=== PATIENT | female | born 1985 | race Caucasian/White ===

== ENCOUNTER 2016-07-11 13:48 | Outpatient (CLI) | payer OTHER | END 2016-07-11 13:49 | disposition home or self-care (01) | DX: M23.8X1 Other internal derangements of right knee (principal); M25.561 Pain in right knee ==

== ENCOUNTER 2017-06-17 08:00 | Outpatient (CLI) | payer OTHER ==
[2017-06-17 19:54] LABS: THYROID STIMULATING HORMONE 0.65 uIU/mL (0.34-5.60)
[2017-06-17 19:58] LABS: FERRITIN 24.1 ng/mL (11.0-306.8)
[2017-06-17 20:28] LABS: BASOPHILS % (AUTO) 0.4 %; EOSINOPHILS # (AUTO) 0.1 10^3/uL (0.0-0.7); EOSINOPHILS % (AUTO) 1.1 %; HCT - HEMATOCRIT 39.4 % (37.0-47.0); HGB - HEMOGLOBIN 13.4 g/dL (12.0-16.0); LYMPHOCYTES # (AUTO) 1.8 10^3/uL (1.5-3.5); LYMPHOCYTES % (AUTO) 23.7 %; MEAN CORPUSCULAR HEMOGLOBIN 30.1 pg (27.0-31.0); MEAN CORPUSCULAR HGB CONC 34.1 g/dL (32.0-36.0); MEAN CORPUSCULAR VOLUME 88.3 fL (81.0-99.0); MEAN PLATELET VOLUME 8.5 fL (7.9-10.8); MONOCYTES # (AUTO) 0.6 10^3/uL (0.0-1.0); MONOCYTES % (AUTO) 8.2 %; NEUTROPHILS # (AUTO) 4.9 10^3/uL (1.5-6.6); NEUTROPHILS % (AUTO) 66.6 %; RED BLOOD COUNT 4.46 10^6/uL (4.20-5.40); RED CELL DISTRIBUTION WIDTH 13.1 % (12.0-15.0); UNCORRECTED WHITE BLOOD COUNT 7.4 x10^3/uL; WHITE BLOOD COUNT 7.4 x10^3/uL (4.8-10.8)
== END 2017-06-17 08:01 | disposition home or self-care (01) ==
LOC: LAB.WCP 08:00
PROVIDERS: ATTEND Family Medicine
DX: N92.0 Excessive and frequent menstruation with regular cycle (principal)
CPT/HCPCS: 36415; 82728; 84443; 85025

== ENCOUNTER 2017-08-19 10:00 | Outpatient (CLI) | payer OTHER | END 2017-08-19 10:01 | disposition home or self-care (01) | LOC: LAB.WCP 10:00 | PROVIDERS: ATTEND Family Medicine | DX: N89.8 Other specified noninflammatory disorders of vagina (principal) | CPT/HCPCS: 87480; 87491; 87510; 87591; 87660 ==

== ENCOUNTER 2019-04-06 08:00 | Outpatient (CLI) | payer OTHER | END 2019-04-06 23:59 | disposition home or self-care (01) | LOC: LAB.WCP 08:00 | PROVIDERS: ATTEND Family Medicine | DX: N94.6 Dysmenorrhea, unspecified (principal) | CPT/HCPCS: 36415; 84146 ==

== ENCOUNTER 2019-06-01 11:46 | Day surgery (SDC) | payer OTHER ==
[~2019-06-01 11:46] MED LIST: ONDANSETRON 4 MG/2 ML VIAL ONE; SCOPOLAMINE PATCH TOP ONE
[2019-06-01 12:03] LABS: HCG UR QUAL NEGATIVE
[2019-06-01] MEDS ORDERED: LACTATED RINGERS 1,000 ML IV ONE (12:08)
[2019-06-01 14:31] VITALS: BP 108/83
== END 2019-06-01 11:47 | disposition home or self-care (01) ==
LOC: SDS 11:46
PROVIDERS: ATTEND Surgery
PROC: 0DJD8ZZ Inspection of Lower Intestinal Tract, Via Natural or Artificial Opening Endoscopic (ICD-10-PCS; principal; 2019-06-01 13:15)
DX: K62.5 Hemorrhage of anus and rectum (principal); K64.8 Other hemorrhoids; K59.00 Constipation, unspecified
CPT/HCPCS: 45378; 81025; J3490; J7120

== ENCOUNTER 2019-11-09 08:00 | Outpatient (CLI) | payer OTHER ==
[2019-11-09 14:10] LABS: FREE T3 7.39 pg/mL (2.5-3.9)
== END 2019-11-09 23:59 | disposition home or self-care (01) ==
LOC: LAB.WCP 08:00
PROVIDERS: ATTEND Family Medicine
DX: E03.9 Hypothyroidism, unspecified (principal)
CPT/HCPCS: 36415; 84443; 84481

== ENCOUNTER 2019-11-09 11:52 | Outpatient (CLI) | payer OTHER ==
--- NOTE | 2019-11-10 03:12 | XRAY Report ---
Reason: ROTATOR CUFF TEAR Procedure Date: 11/09/2019 Accession Number: [id number] / [id number] Procedure: WCP - Shoulder 2 View LT CPT Code: Final Report FULL RESULT: EXAM: LEFT SHOULDER RADIOGRAPHY EXAM DATE: 11/09/2019 11:52 AM. CLINICAL HISTORY: ROTATOR CUFF TEAR. COMPARISON: None. TECHNIQUE: 2 views. FINDINGS: Bones: Normal. No fracture or bone lesion. Joints: The glenohumeral and acromioclavicular joints are normal. Soft tissues: The visualized hemithorax is unremarkable. No soft tissue swelling. IMPRESSION: Normal shoulder radiography. [facility]
== END 2019-11-09 23:59 | disposition home or self-care (01) ==
LOC: DI.WCP 11:52
PROVIDERS: ATTEND Family Medicine
DX: M75.102 Unspecified rotator cuff tear or rupture of left shoulder, not specified as traumatic (principal)

== ENCOUNTER 2021-03-30 07:49 | Outpatient (CLI) | payer OTHER ==
--- NOTE | 2021-03-30 09:45 | Ultrasound Report ---
PROCEDURE: Abdomen Complete INDICATIONS: LEFT UPPER QUAD ABD PAIN TECHNIQUE: Real-time scanning was performed of the abdominal and retroperitoneal organs, with image documentatio n. COMPARISON: None. FINDINGS: Liver: Liver is normal in size and demonstrates a mildly echogenic and coarsened appearance. Gallbladder: No gallstones or significant sludge can be seen. The gallbladder wall does not appear th ickened. There is no specific pericholecystic fluid. The sonographic Vera's sign is negative. Biliary ducts: Intrahepatic bile ducts are non-dilated. Extrahepatic bile duct caliber measures 4 m m. Normal is 6-7 mm or less in diameter, or 10 mm or less post-cholecystectomy. Pancreas: Visualized portions of the pancreas are sonographically normal. Spleen: Spleen is normal in size and demonstrates 2 simple appearing cysts that measure up to 1.2 cm . The spleen overall is echogenic. Kidneys: Kidneys are normal in size and echotexture. Right kidney measures 9.5 cm long; left kidney measures 10.8 cm long. No hydronephrosis can be seen. Within the right lateral mid kidney there is a 7 mm hyperechoic focus seen, without shadowing. At the superior pole of the left kidney, there is a 1.5 cm simple cyst seen. Aorta: Visualized aorta is normal in caliber at less than 3 cm. Iliacs: Proximal common iliac arteries are normal in caliber at less than 2.5 cm. IVC: Intrahepatic inferior vena cava is patent. Miscellaneous: No free abdominal fluid. IMPRESSION: A cause of left upper quadrant pain is not identified. The spleen demonstrates normal size. The spleen is mildly echogenic, which is not considered to be fr ankly pathologic. Simple appearing splenic cysts are also seen. Incidental note is made of: Mild fatty liver infiltration Right kidney presumed benign fat-containing lesion Left kidney cortical cyst Reviewed by: Ron Mccray MD on 03/30/2021 8:44 AM CINDY Approved by: Ron Mccray MD on 03/30/2021 8:44 AM CINDY Station ID: [id number]
--- NOTE | 2021-03-30 09:47 | Ultrasound Report ---
PROCEDURE: Head or Neck Soft Tissue INDICATIONS: LYMPHADENOPATHY TECHNIQUE: Real time scanning was performed of the neck region of interest, with image documentation . COMPARISON: None. FINDINGS: Scanning is performed at the area of clinical concern involving the right lateral neck. At this site, there is a normal-appearing lymph node seen that measures within normal limits for size a t 16 x 8 x 3 mm. Normal appearing cortex is seen that measures 2 mm in thickness. There is a normal, well preserved fatty hilum with normal flow within the fatty hilum. IMPRESSION: At the area of clinical concern, there is a normal-appearing lymph node seen. Reviewed by: Ron Mccray MD on 03/30/2021 8:46 AM CINDY Approved by: Ron Mccray MD on 03/30/2021 8:46 AM CINDY Station ID: [id number]
== END 2021-03-30 07:50 | disposition home or self-care (01) ==
LOC: DI 07:49
PROVIDERS: ATTEND Family Medicine
DX: R10.12 Left upper quadrant pain (principal); R59.1 Generalized enlarged lymph nodes; K76.0 Fatty (change of) liver, not elsewhere classified; N28.1 Cyst of kidney, acquired; D73.4 Cyst of spleen

== ENCOUNTER 2021-04-12 13:19 | Outpatient (CLI) | payer OTHER ==
[2021-04-12 18:55] LABS: THYROID STIMULATING HORMONE 0.93 uIU/mL (0.34-5.60)
[2021-04-12 18:57] LABS: FREE T3 3.34 pg/mL (2.5-3.9)
[2021-04-12 19:00] LABS: FREE T4 (FREE THYROXINE) 0.99 ng/dL (0.58-1.64)
== END 2021-04-12 23:59 | disposition home or self-care (01) ==
LOC: LAB.WCP 13:19
PROVIDERS: ATTEND Family Medicine
DX: E03.9 Hypothyroidism, unspecified (principal)
CPT/HCPCS: 36415; 84439; 84443; 84481

== ENCOUNTER 2021-08-13 11:38 | Outpatient (CLI) | payer BC ==
[2021-08-13 18:04] LABS: BASOPHILS % (AUTO) 0.4 %; EOSINOPHILS # (AUTO) 0.1 10^3/uL (0.0-0.7); EOSINOPHILS % (AUTO) 0.9 %; HCT - HEMATOCRIT 42.4 % (37.0-47.0); HGB - HEMOGLOBIN 14.3 g/dL (12.0-16.0); LYMPHOCYTES # (AUTO) 1.6 10^3/uL (1.5-3.5); LYMPHOCYTES % (AUTO) 22.1 %; MEAN CORPUSCULAR HGB CONC 33.7 g/dL (32.0-36.0); MEAN CORPUSCULAR VOLUME 88.9 fL (81.0-99.0); MONOCYTES # (AUTO) 0.6 10^3/uL (0.0-1.0); MONOCYTES % (AUTO) 8.3 %; NEUTROPHILS # (AUTO) 4.8 10^3/uL (1.5-6.6); NEUTROPHILS % (AUTO) 68.2 %; PLT - PLATELET COUNT 308 10^3/uL (130-450); RED BLOOD COUNT 4.77 10^6/uL (4.20-5.40); RED CELL DISTRIBUTION WIDTH 12.5 % (12.0-15.0)
[2021-08-13 18:22] LABS: THYROID STIMULATING HORMONE 0.88 uIU/mL (0.34-5.60)
[2021-08-13 18:24] LABS: FREE T4 (FREE THYROXINE) 1.05 ng/dL (0.58-1.64)
== END 2021-08-13 11:39 | disposition home or self-care (01) ==
LOC: LAB.N 11:38
PROVIDERS: ATTEND Family Medicine
DX: D64.9 Anemia, unspecified (principal); E03.9 Hypothyroidism, unspecified
CPT/HCPCS: 36415; 84439; 84443; 85025

== ENCOUNTER 2022-04-26 08:57 | Outpatient (CLI) | payer BC ==
[~2022-04-26 08:57] MED LIST changes: +GADOBUTROL 7.5 MMOL/7.5 ML VIAL ONE; -ONDANSETRON 4 MG/2 ML VIAL ONE; -SCOPOLAMINE PATCH TOP ONE
[2022-04-26] MEDS ORDERED: GADOBUTROL 7.5 MMOL/7.5 ML VIAL IVP ONE (09:59)
--- NOTE | 2022-04-27 20:40 | MRI Report ---
PROCEDURE: BRAIN W/WO INDICATIONS: PARESTHESIAS TECHNIQUE: Noncontrast axial T1 spin echo, axial T2 fast spin echo, sagittal and axial FLAIR, coronal T2 fast sp in echo, axial gradient echo, axial diffusion and ADC through the brain. After the administration of contrast, axial and coronal T1 spin echo with fat saturation through the brain. COMPARISON: None. FINDINGS: Image quality: Excellent. CSF spaces: Basal cisterns are patent. No extra-axial fluid collections. Ventricles are normal in size and shape. Brain: No midline shift. No intracranial bleeds or masses. No abnormal intracranial enhancement. There is cerebral volume loss for age. There is periventricular white matter chronic small vessel is chemic change. The brainstem appears normal. Diffusion-weighted images demonstrate no acute ischemi c insults. No chronic ischemic insults. Normal intravascular flow voids are present. Skull and face: Calvarial marrow is normal in signal. Orbits appear normal. Sinuses: Sinuses and mastoids appear clear. IMPRESSION: No acute or otherwise significant intracranial abnormality. Reviewed by: Kulwinder Alonzo MD on 04/27/2022 8:39 PM PDT Approved by: Kulwinder Alonzo MD on 04/27/2022 8:39 PM PDT Station ID: [id number]
== END 2022-04-26 08:58 | disposition home or self-care (01) ==
LOC: DI 08:57
PROVIDERS: ATTEND Psychiatry & Neurology Neurology
DX: R20.2 Paresthesia of skin (principal)
CPT/HCPCS: 70553; A9585